=== PATIENT | female | born 1990 | race Hispanic/Latino ===

== ENCOUNTER → 2024-01-06 13:43 | Outpatient (REF) | payer BC, SELFPAY | LOC: PNTC 13:43 | PROVIDERS: ATTENDING PHYSICIAN Obstetrics & Gynecology | DX: Z36.0 Encounter for antenatal screening for chromosomal anomalies (principal); Z36.82 Encounter for antenatal screening for nuchal translucency | CPT/HCPCS: 76801; 76813 ==

== ENCOUNTER → 2024-01-29 11:28 | Outpatient (REF) | payer BC, SELFPAY | LOC: PNTC 11:28 | PROVIDERS: ATTENDING PHYSICIAN Obstetrics & Gynecology; FAMILY PHYSICIAN Family Medicine | DX: O09.819 Supervision of pregnancy resulting from assisted reproductive technology, unspecified trimester (principal); O99.210 Obesity complicating pregnancy, unspecified trimester | CPT/HCPCS: 76805 ==

== ENCOUNTER 2024-02-25 21:55 | Emergency (ER) | payer OTHER, SELFPAY ==
[2024-02-25 21:59] VITALS: BP 138/79
[2024-02-25 22:29] LABS: % Basophils 0.5 % (0-2); % Eosinophils 1.8 % (0-6); % Immature Granulocytes 1.6 % (0-0.5); % Lymphocytes 20.6 % (20.5-51.1); % Monocytes 6.5 % (1.7-9.3); Absolute Basophils 0.1 10^3/uL (0-0.2); Absolute Eosinophils 0.3 10^3/uL (0-0.7); Absolute Immature Granulocytes 0.2 10^3/uL (0-0.05); Absolute Neutrophils 10.1 10^3/uL (1.4-6.5); Hemoglobin 11.1 g/dL (12.0-16.0); Mean Corp Hgb Conc. 32.6 g/dL (33.0-37.0); Mean Corpuscular Hgb 28.5 pg (27.0-31.0); Mean Corpuscular Volume 87.4 fL (81.0-99.0); Mean Platelet Volume 10.3 fL (7.4-10.4); Nucleated Red Blood Cells % 0 %; Platelet Count 251 10^3/uL (130-400); Red Blood Cell Count 3.89 10^6/uL (4.20-5.40); Red Cell Dist. Width 13.3 % (11.5-14.5); Urine Albumin Negative (Neg - Trace); Urine Bilirubin Negative (Negative); Urine Character Clear (Clear); Urine Color Yellow; Urine Glucose Negative (Negative); Urine Ketone Negative (Negative); Urine Leukocyte Negative (Negative); Urine Nitrite Negative (Negative); Urine Occult Blood Negative (Negative); Urine Specific Gravity 1.015 (<1.030); Urine Urobilinogen Negative (Neg - 1+); White Blood Cell Count 14.6 10^3/uL (4.8-10.8)
[2024-02-25 22:48] LABS: ALT (SGPT) 33 U/L (0-35); AST (SGOT) 27 U/L (14-36); Albumin 3.5 g/dl (3.5-5.0); Alkaline Phosphatase 63 U/L (38-126); Blood Urea Nitrogen 9 mg/dl (7-17); Calcium 8.8 mg/dl (8.4-10.2); Carbon Dioxide 22 mmol/L (22-30); Chloride 106 mmol/L (98-107); Glucose 105 mg/dl (70-99); Potassium 3.8 mmol/L (3.5-5.1); Sodium 132 mmol/L (135-145); Total Bilirubin 0.2 mg/dl (0.2-1.3); Total Protein 6.4 g/dl (6.3-8.2); eGFR > 60.00
[2024-02-26 00:21] VITALS: BP 127/68
[2024-02-26 01:00] VITALS: BP 133/67
[2024-02-26] MEDS: TYLENOL 650 MG PO (01:25)
--- NOTE | 2024-02-26 01:52 | ED.GENMED ---
History of Present Illness
General
Chief Complaint: Numbness
Source: patient
Time Seen by Provider: 02/26/24 01:34
Nursing documentation reviewed up to this point in time: agreed with
Travel History
Have you had any contact with someone who has COVID-19?: No
Do you have any symptoms of coronavirus? Fever > 100 degrees, chills, cough, shortness of breath, sore throat, loss of taste or smell, muscle aches, or headache?: No
History of Present Illness
History of Present Illness:
33-year-old female who is with her first presents with multiple complaints. She is [address] weeks [address] Argueta. She has an appointment with her this morning. She is due for her 20-week anatomy scan in 1 day.
Patient states that she has numbness and tingling in all 4 extremities. She did have palpitations. She called her [facility] COUNSELOR office who told her to come to the emergency department. Patient does have a mild headache. Denies fever or chills. Denies
nausea or vomiting. States that she can feel the baby move.
Vital signs are stable. Patient not hypoxic
Nursing note reviewed. I agree with nursing documentation up to this point in time.
Home Meds and allergies reviewed.
NUMBER AND COMPLEXITY OF PROBLEMS ADDRESSED AT THE ENCOUNTER
� Chronic conditions affecting care:
� Acute Exacerbation and/or Progression of Chronic Illness:
� Differential Diagnosis includes:
AMOUNT AND/OR COMPLEXITY OF DATA TO BE REVIEWED AND ANALYZED
I performed an independent evaluation of the following and my interpretation is:
EKG: EKG shows normal sinus rhythm rate of 98 with normal intervals, normal axis. No evidence of acute ischemia present. No old EKG available for comparison.
CT:
X-rays:
Ultrasound:
Laboratory Studies:
Other:
Review of other/old records:
Clinical information was obtained by an independent historian:
Prescriptions/Medications Considered but not given:
Further testing considered but not performed:
RISK OF COMPLICATIONS AND/OR MORBIDITY OR MORTALITY OF PATIENT MANAGEMENT
Social determinants of health affecting care: Good Social Support, good follow-up
Discussion with other providers:
Escalation of care including admission/observation vs risk of discharge considered: Admission not indicated
CRITICAL CARE NOTE: Not applicable
Total Time (exclusive of procedures):
Update:
Phy Exam
Physical Exam
Physical Exam:
Physical Exam
Vital signs and allergy list reviewed and agreed with.
GENERAL: Alert , in minimal to no apparent distress
EYE: pupils equal, EOMI, anicteric
NECK: Supple, no significant adenopathy. No masses. Trachea midline
ENT: Oropharynx is clear, mmm.
CARDIAC: Regular rate and rhythm . No M/R/G
LUNGS: Clear breath sounds bilaterally, no acute respiratory distress, no wheezes/rales/rhonchi
ABDOMEN: Soft, without focal tenderness, no r/g, no cvat. Normal BSx4q
NEUROLOGICAL: Alert and oriented, no focal neuro deficits
SKIN: Warm and dry, skin intact.
MUSCULOSKELETAL: No edema, well perfused. Moves all 4 extremities
PSYCH: Normal and appropriate interaction.
Course
Orders/Labs/Results
Orders:
Orders
02/25/24 22:17
Electrocardiogram (*1) Urgent
Reason for Study: Tachycardia
EKG- Treatment ONCE
02/25/24 22:20
CMP [Comprehensive Metabolic Panel] Urgent
Complete Blood Count/With Diff Urgent
Magnesium Urgent
Comment: ADD ON
Phosphorus Urgent
TSH Urgent
Urinalysis Reflex To Culture Urgent
Date Specimen was Collected: 02/25/24
Time Specimen was Collected: 22:17
02/25/24 22:30
Heart Tones ONCE
02/26/24 01:22
Acetaminophen [Tylenol] 650 mg PO NOW STA
02/26/24 01:45
Add On- LAB Urgent
Tests Added?: magnesium, Phos, tsh
02/26/24 02:00
Heart Tones ONCE
Abnormal Lab Results
02/25/24
22:20
WBC 14.6 H 10^3/uL
(4.8-10.8)
RBC 3.89 L 10^6/uL
(4.20-5.40)
Hgb 11.1 L g/dL
(12.0-16.0)
Hct 34.0 L %
(37.0-47.0)
MCHC 32.6 L g/dL
(33.0-37.0)
Abs Immat Gran (auto) 0.2 H 10^3/uL
(0-0.05)
Absolute Neuts (auto) 10.1 H 10^3/uL
(1.4-6.5)
Absolute Monos (auto) 1.0 H 10^3/uL
(0.1-0.6)
Immature Gran % 1.6 H %
(0-0.5)
Sodium 132 L mmol/L
(135-145)
Creatinine 0.5 L mg/dL
(0.6-1.0)
Glucose 105 H mg/dl
(70-99)
02/25/24 22:20
02/25/24 22:20
Vital Signs
Initial and Last Documented VS:
Initial Vital Signs
Temp Pulse Resp BP Pulse Ox
98.6 F 117 22 138/79 98
02/25/24 21:59 02/25/24 21:59 02/25/24 21:59 02/25/24 21:59 02/25/24 21:59
Last Documented Vital Signs
Temp Pulse Resp BP Pulse Ox
98.6 F 97 14 133/67 100
02/25/24 21:59 02/26/24 01:15 02/26/24 01:15 02/26/24 01:00 02/26/24 02:17
*Critical Care Note
Total Time (30-74mins, 75-104mins- exclusive of procedures): Not Applicable
Update Note
Update Note:
I do not feel that this is preeclampsia. Her systolic blood pressures less than 140 systolic. She is just at 20 weeks gestation. She does not have proteinuria. Her platelet count is normal. Creatinine is normal. Transaminases are normal. Her
headache is resolving with Tylenol. She denies blurry vision, flashing lights, or any other visual acuity changes. She denies any right upper quadrant or epigastric pain.
For many of the same reasons I do not feel patient has help syndrome. Transaminases are normal. She does not have severe anemia. Her platelets are normal. Bilirubin is normal.
ED Attending Note
-
Portions of this chart may have been created with voice recognition software.� Occasional wrong word or��sound alike� substitutions may have occurred due to the inherent limitations of voice recognition software.
Discharge Plan
Departure
Patient Disposition: Home (Routine Discharge)
Date of Disposition: 02/26/24
Time of Disposition: 02:36
Patient with high blood pressure during this ER visit?: Yes
Condition: Good
Discharge Problem:
Paresthesia,
Instructions: Paresthesia (DC), BLOOD PRESSURE
Prescriptions:
No Action
cephalexin 500 MG capsule
500 mg PO TID Qty: 15 0RF
ibuprofen 600 MG tablet
600 mg PO QIDPRN PRN (Reason: pain) Qty: 30 0RF
Referrals:
Amy Argueta MD [Active] - Keep scheduled appt
Yolanda Hankins CRNP [Family Provider] -
Activity Restrictions/Additional Instructions:
It was a pleasure meeting you and taking part in your care. We hope for your continued healing and wellness.
Please read discharge instructions in their entirety. However, they are for general education and may not describe your exact diagnosis at discharge. Information on your ER visit and medical conditions were discussed with you along with appropriate
follow up information...
If indicated, please take your medications as instructed and indicated on discharge paperwork.
Please schedule a follow up appointment as directed. Call to schedule an appointment
Please return to the emergency department with ANY change in, persisting, or worsening of symptoms. If any of your symptoms do not improve, or persist, or become more severe within 6-12 hours, please return to the emergency department for further
care.
Please return to the emergency department if you develop a headache, neck pain/stiffness, fever greater than 100.4F, chest pain, shortness of breath, persistent nausea, vomiting, slurred speech, difficulty walking, numbness/tingling, weakness, signs
of infection or any other symptoms that are worrisome to you.
If you have any questions or concerns please do not hesitate to call the Hospital at or E-mail me directly at [email or web address]
Interventions
Interventions:
*Risk Screen - Suicide Last Done: 02/26/24 00:28
*General Assessment Last Done: 02/25/24 21:59
*Neglect/Abuse Screening Last Done: 02/25/24 21:59
ED- Fall Risk Assessment Last Done: 02/26/24 00:28
*ED COVID-19 Vaccine History Last Done: 02/25/24 22:07
*Nursing Disposition Last Done: 02/26/24 02:58
ED- Neurological Assessment Last Done: 02/26/24 00:28
Discharge Date and Time
Discharge Date/Time: 02/26/24 02:58
Print Language: [id number]
[2024-02-26 02:05] LABS: Magnesium 1.7 mg/dl (1.6-2.3)
== END 2024-02-26 02:58 | disposition home or self-care (01) ==
LOC: EMR 21:55
PROVIDERS: Emergency Medicine; EMERGENCY PHYSICIAN Student in an Organized Health Care Education/Training Program; FAMILY PHYSICIAN Nurse Practitioner Family
DX: O26.892 Other specified pregnancy related conditions, second trimester (principal); Z3A.20 20 weeks gestation of pregnancy; R20.2 Paresthesia of skin; R00.2 Palpitations; R20.0 Anesthesia of skin; R06.02 Shortness of breath; R51.9 Headache, unspecified; R03.0 Elevated blood-pressure reading, without diagnosis of hypertension; Z88.6 Allergy status to analgesic agent; Z91.010 Allergy to peanuts
CPT/HCPCS: 99283; 80053; 81003; 83735; 84100; 84443; 85025; 93005

== ENCOUNTER → 2024-02-27 13:27 | Outpatient (REF) | payer OTHER, SELFPAY | LOC: PNTC 13:27 | PROVIDERS: ATTENDING PHYSICIAN Obstetrics & Gynecology | DX: O09.819 Supervision of pregnancy resulting from assisted reproductive technology, unspecified trimester (principal); O99.210 Obesity complicating pregnancy, unspecified trimester | CPT/HCPCS: 76811 ==

== ENCOUNTER → 2024-04-08 13:31 | Outpatient (REF) | payer OTHER, SELFPAY | LOC: PNTC 13:31 | PROVIDERS: ATTENDING PHYSICIAN Obstetrics & Gynecology | DX: O09.819 Supervision of pregnancy resulting from assisted reproductive technology, unspecified trimester (principal); O99.210 Obesity complicating pregnancy, unspecified trimester; O09.899 Supervision of other high risk pregnancies, unspecified trimester | CPT/HCPCS: 76816 ==

== ENCOUNTER → 2024-04-20 16:55 | Outpatient (REF) | payer OTHER, SELFPAY | LOC: PNTC 16:55 | PROVIDERS: ATTENDING PHYSICIAN Obstetrics & Gynecology | DX: O36.8190 Decreased fetal movements, unspecified trimester, not applicable or unspecified (principal) | CPT/HCPCS: 59025 ==

== ENCOUNTER → 2024-05-19 11:54 | Outpatient (REF) | payer OTHER, SELFPAY | LOC: PNTC 11:54 | PROVIDERS: ATTENDING PHYSICIAN Obstetrics & Gynecology | DX: O09.819 Supervision of pregnancy resulting from assisted reproductive technology, unspecified trimester (principal); O99.210 Obesity complicating pregnancy, unspecified trimester | CPT/HCPCS: 76816; 99078 ==

== ENCOUNTER → 2024-05-28 13:57 | Outpatient (REF) | payer OTHER, SELFPAY | LOC: PNTC 13:57 | PROVIDERS: ATTENDING PHYSICIAN Obstetrics & Gynecology | DX: O24.419 Gestational diabetes mellitus in pregnancy, unspecified control (principal) | CPT/HCPCS: 59025; 76815; 76818 ==

== ENCOUNTER → 2024-06-04 14:03 | Outpatient (REF) | payer OTHER, SELFPAY | LOC: PNTC 14:03 | PROVIDERS: ATTENDING PHYSICIAN Obstetrics & Gynecology | DX: O24.419 Gestational diabetes mellitus in pregnancy, unspecified control (principal) | CPT/HCPCS: 59025; 76815 ==

== ENCOUNTER 2024-06-06 16:54 | Observation (INO) | payer OTHER, SELFPAY ==
[2024-06-06 17:45] VITALS: BP 122/61; BMI 34.8
[2024-06-06 18:47] LABS: Urine Albumin Negative (Neg - Trace); Urine Bilirubin Negative (Negative); Urine Character Clear (Clear); Urine Color Yellow; Urine Glucose Negative (Negative); Urine Ketone 3+ (Negative); Urine Leukocyte Negative (Negative); Urine Nitrite Negative (Negative); Urine Occult Blood Negative (Negative); Urine Specific Gravity 1.025 (<1.030); Urine Urobilinogen Negative (Neg - 1+)
== END 2024-06-06 19:43 | disposition home or self-care (01) ==
LOC: LDRP 16:54
PROVIDERS: ADMITTING PHYSICIAN Obstetrics & Gynecology; FAMILY PHYSICIAN Nurse Practitioner Family
DX: R10.9 Unspecified abdominal pain (principal); R10.2 Pelvic and perineal pain; O24.414 Gestational diabetes mellitus in pregnancy, insulin controlled; Z3A.34 34 weeks gestation of pregnancy; O99.343 Other mental disorders complicating pregnancy, third trimester; F41.9 Anxiety disorder, unspecified; F32.A Depression, unspecified; F90.9 Attention-deficit hyperactivity disorder, unspecified type; M51.27 Other intervertebral disc displacement, lumbosacral region; Z82.49 Family history of ischemic heart disease and other diseases of the circulatory system; Z83.3 Family history of diabetes mellitus; Z80.3 Family history of malignant neoplasm of breast; Z88.8 Allergy status to other drugs, medicaments and biological substances; Z88.5 Allergy status to narcotic agent; Z91.010 Allergy to peanuts
CPT/HCPCS: 81003; G0378

== ENCOUNTER → 2024-06-11 14:10 | Outpatient (REF) | payer OTHER, SELFPAY | LOC: PNTC 14:10 | PROVIDERS: ATTENDING PHYSICIAN Obstetrics & Gynecology | DX: O24.419 Gestational diabetes mellitus in pregnancy, unspecified control (principal) | CPT/HCPCS: 59025; 76815 ==

== ENCOUNTER → 2024-06-16 14:45 | Outpatient (REF) | payer OTHER, SELFPAY | LOC: PNTC 14:45 | PROVIDERS: ATTENDING PHYSICIAN Obstetrics & Gynecology | DX: O09.819 Supervision of pregnancy resulting from assisted reproductive technology, unspecified trimester (principal); O99.210 Obesity complicating pregnancy, unspecified trimester | CPT/HCPCS: 59025; 76816 ==

== ENCOUNTER → 2024-06-23 13:51 | Outpatient (REF) | payer OTHER, SELFPAY | LOC: PNTC 13:51 | PROVIDERS: ATTENDING PHYSICIAN Obstetrics & Gynecology | DX: O09.819 Supervision of pregnancy resulting from assisted reproductive technology, unspecified trimester (principal); O99.210 Obesity complicating pregnancy, unspecified trimester | CPT/HCPCS: 76815 ==

== ENCOUNTER → 2024-06-30 14:30 | Outpatient (REF) | payer OTHER, SELFPAY | LOC: PNTC 14:30 | PROVIDERS: ATTENDING PHYSICIAN Obstetrics & Gynecology | DX: O09.819 Supervision of pregnancy resulting from assisted reproductive technology, unspecified trimester (principal); O99.210 Obesity complicating pregnancy, unspecified trimester | CPT/HCPCS: 59025; 76815 ==

== ENCOUNTER → 2024-07-08 14:15 | Outpatient (REF) | payer OTHER, SELFPAY | LOC: PNTC 14:15 | PROVIDERS: ATTENDING PHYSICIAN Obstetrics & Gynecology | DX: O09.819 Supervision of pregnancy resulting from assisted reproductive technology, unspecified trimester (principal); O99.210 Obesity complicating pregnancy, unspecified trimester | CPT/HCPCS: 59025; 76815 ==

== ENCOUNTER 2024-07-09 22:59 | Inpatient (IN) | payer OTHER, SELFPAY ==
[2024-07-09 19:37] VITALS: BP 138/64; BMI 36.6
[2024-07-09 20:05] LABS: Glucose - Point of Care 107 mg/dl (70-99)
[2024-07-09] MEDS: LR 1000 IV (20:09)
[2024-07-09] MEDS: CYTOTEC 50 MICROGRAM VAG (20:09)
[2024-07-09 20:11] LABS: % Basophils 0.3 % (0-2); % Eosinophils 0.9 % (0-6); % Immature Granulocytes 0.7 % (0-0.5); % Monocytes 5.3 % (1.7-9.3); % Neutrophils 71.8 % (42.2-75.2); Absolute Eosinophils 0.1 10^3/uL (0-0.7); Absolute Immature Granulocytes 0.1 10^3/uL (0-0.05); Absolute Monocytes 0.5 10^3/uL (0.1-0.6); Absolute Neutrophils 6.9 10^3/uL (1.4-6.5); Mean Corp Hgb Conc. 34.4 g/dL (33.0-37.0); Mean Corpuscular Hgb 27.6 pg (27.0-31.0); Mean Corpuscular Volume 80.2 fL (81.0-99.0); Mean Platelet Volume 11.3 fL (7.4-10.4); Nucleated Red Blood Cells % 0 %; Platelet Count 233 10^3/uL (130-400); Red Blood Cell Count 3.99 10^6/uL (4.20-5.40); Red Cell Dist. Width 16.4 % (11.5-14.5); White Blood Cell Count 9.6 10^3/uL (4.8-10.8)
[2024-07-09] MEDS: HUMULIN N KWIKPEN 10 UNITS SC (22:44)
[2024-07-09] MEDS: LANTUS 0.14 UNITS SC (22:58)
[2024-07-10] MEDS: CYTOTEC 50 MICROGRAM PO (00:01)
[2024-07-10 00:02] LABS: Glucose - Point of Care 117 mg/dl (70-99)
[2024-07-10] MEDS: MORPHINE SULFATE 2 MG IV (01:28)
[2024-07-10] MEDS: LR 1000 IV ×2 (02:30→13:34)
[2024-07-10] MEDS: SUBLIMAZE 100 MCG EPIDURAL (02:32)
[2024-07-10] MEDS: FENTANYL/BUPIVACAINE 100 EPIDURAL ×3 (02:33→17:53)
[2024-07-10 06:29] LABS: Glucose - Point of Care 125 mg/dl (70-99)
[2024-07-10] MEDS: CYTOTEC PO ×8 (06:56→22:04)
[2024-07-10] MEDS: WELLBUTRIN XL (24 hour extended release) 300 MG PO (07:55)
[2024-07-10] MEDS: CYTOTEC 25 MICROGRAM PO (08:07)
[2024-07-10 14:03] LABS: Glucose - Point of Care 79 mg/dl (70-99)
[2024-07-10] MEDS: PITOCIN 30 UNITS/NSS 500 ML IV (16:17)
[2024-07-10 18:02] LABS: Glucose - Point of Care 73 mg/dl (70-99)
[2024-07-10] MEDS: TYLENOL 650 MG PO (20:31)
[2024-07-10] MEDS: ZOFRAN 4 MG IV (20:32)
[2024-07-10] MEDS: PHENERGAN 50.5 MG IV (21:05)
[2024-07-10 22:03] LABS: Glucose - Point of Care 71 mg/dl (70-99)
[2024-07-10] MEDS: HUMULIN N KWIKPEN SC (23:16)
[2024-07-10] MEDS: LANTUS SC (23:16)
[2024-07-11] MEDS: CYTOTEC PO ×4 (00:34→05:49)
[2024-07-11] MEDS: FENTANYL/BUPIVACAINE 100 EPIDURAL ×2 (00:34→08:32)
[2024-07-11] MEDS: PHENERGAN 50.5 MG IV (01:49)
[2024-07-11 01:52] LABS: Glucose - Point of Care 97 mg/dl (70-99)
[2024-07-11 05:54] LABS: Glucose - Point of Care 80 mg/dl (70-99)
[2024-07-11] MEDS: WELLBUTRIN XL (24 hour extended release) PO (07:53)
[2024-07-11] MEDS: TYLENOL 1000 MG PO (08:06)
[2024-07-11] MEDS: ANCEF 10 IV (08:06)
[2024-07-11] MEDS: BICITRA 30 ML PO (08:06)
[2024-07-11 11:50] VITALS: BP 131/81; BP 138/64
[2024-07-11] MEDS: MORPHINE SULFATE 4 MG IV (12:25)
[2024-07-11] MEDS: DILAUDID 0.5 MG IV ×2 (13:30→14:14)
[2024-07-11] MEDS: PERCOCET 5/325 1 TABLET PO ×2 (17:34→22:23)
[2024-07-11] MEDS: TORADOL 15 MG IV ×2 (17:59→23:57)
[2024-07-12] MEDS: TORADOL 15 MG IV ×2 (05:32→12:48)
[2024-07-12 05:58] LABS: Hematocrit 24.8 % (37.0-47.0); Hemoglobin 8.3 g/dL (12.0-16.0); Mean Corp Hgb Conc. 33.5 g/dL (33.0-37.0); Mean Corpuscular Hgb 27.6 pg (27.0-31.0); Mean Corpuscular Volume 82.4 fL (81.0-99.0); Mean Platelet Volume 11.1 fL (7.4-10.4); Platelet Count 212 10^3/uL (130-400); Red Blood Cell Count 3.01 10^6/uL (4.20-5.40); Red Cell Dist. Width 16.1 % (11.5-14.5)
[2024-07-12] MEDS: SENOKOT-S 1 TABLET PO (08:05)
[2024-07-12] MEDS: WELLBUTRIN XL (24 hour extended release) 300 MG PO (08:05)
[2024-07-12] MEDS: PERCOCET 5/325 2 TABLET PO (08:05)
[2024-07-12] MEDS: MYLICON 80 MG PO (08:05)
[2024-07-12] MEDS: PRENATAL PLUS 1 TABLET PO (08:05)
[2024-07-12] MEDS: FEOSOL 325 MG PO ×2 (10:49→20:57)
[2024-07-12] MEDS: DILAUDID 2 MG PO ×3 (12:50→20:57)
--- NOTE | 2024-07-12 16:55 | W.PN.ANS.POP ---
Anesthesia Post Operative
- Anesthesia Post Op Note
Vital Signs Stable-See Nursing Note: Yes
Airway Patent: Yes
Adequate Pain Control: Yes
Change in Mental Status: No
Current Postoperative Nausea & Vomiting: No
Anesthesia Complications: No
General Anesthetic Recall: No
Unplanned Admission: No
Post Op Hydration Adequate: Yes
- -
Pt awake and alert, resting comfortably with no anesthesia r/t c/o at time of post op visit.
[2024-07-13] MEDS: MOTRIN 600 MG PO ×4 (00:20→23:45)
[2024-07-13] MEDS: DILAUDID 4 MG PO (01:02)
[2024-07-13] MEDS: DILAUDID 2 MG PO ×4 (05:17→23:46)
[2024-07-13] MEDS: PRENATAL PLUS 1 TABLET PO (08:04)
[2024-07-13] MEDS: WELLBUTRIN XL (24 hour extended release) 300 MG PO (08:04)
[2024-07-13] MEDS: FEOSOL 325 MG PO ×2 (08:04→19:40)
[2024-07-13] MEDS: SENOKOT-S 1 TABLET PO (09:21)
[2024-07-14] MEDS: PRENATAL PLUS 1 TABLET PO (08:26)
[2024-07-14] MEDS: FEOSOL 325 MG PO (08:26)
[2024-07-14] MEDS: DILAUDID 2 MG PO (08:27)
[2024-07-14] MEDS: WELLBUTRIN XL (24 hour extended release) 300 MG PO (08:27)
[2024-07-14] MEDS: MOTRIN 600 MG PO (08:27)
--- NOTE | 2024-07-14 13:15 | W.DS.TRANS ---
DC Summary - [employer] Att[employer]
-
Discharge Instructions:
Discharge Diagnosis/Procedures section
Instructions:
Stand-Alone Forms: LDRP Delivery
Changes to Home Medications: No
Discharge Medications:
DC Medications w/original date entered in [facility]
Vitamin 1 tab PO DAILY Supplement 06/06/24
Vitamin D (with calcium) 1 tab PO DAILY Supplement 06/06/24
Wellbutrin 300 mg PO DAILY depression/anxiety 06/06/24
acetaminophen 325 mg tablet 650 mg (2 x 325 mg) PO Q4HPRN PRN mild pain #0 tabs 07/14/24
ferrous sulfate 325 mg (65 mg iron) tablet (FeroSul) 325 mg PO DAILY #30 tabs 07/14/24
hydromorphone 2 mg tablet 2 mg PO Q4HPRN PRN moderate pain #14 tabs 07/14/24
ibuprofen 600 mg tablet 600 mg PO Q6HPRN PRN cramps #60 tabs 07/14/24
sennosides 8.6 mg-docusate sodium 50 mg tablet 1 tab PO DAILYPRN PRN constipation #0 tabs 07/14/24
Home Medication Changes
Pending Results: No
[2024-07-14 15:43] LABS: Syphilis/T. pallidum Ab Reflex Negative (Negative)
== END 2024-07-14 12:03 | disposition home or self-care (01) | DRG 788 ==
LOC: LDRP 22:59
PROVIDERS: ADMITTING PHYSICIAN Obstetrics & Gynecology; FAMILY PHYSICIAN Nurse Practitioner Family
PROC: 3E0P7VZ Introduction of Hormone into Female Reproductive, Via Natural or Artificial Opening (ICD-10-PCS; 2024-07-09)
PROC: 10D00Z1 Extraction of Products of Conception, Low, Open Approach (ICD-10-PCS; 2024-07-11)
DX: O24.424 Gestational diabetes mellitus in childbirth, insulin controlled (principal); Z3A.39 39 weeks gestation of pregnancy; Z37.0 Single live birth; O61.0 Failed medical induction of labor; O99.214 Obesity complicating childbirth
CPT/HCPCS: 88307; 82962; 85025; 85027; 86780; 86850; 86900; 86901